=== PATIENT | male | born 1960 ===

== ENCOUNTER 2024-06-12 07:12 | Day surgery (SDC) | payer OTHER ==
[2024-06-12] MEDS ORDERED: DIBUCAINE 30 GM TUBE ONE (10:33)
[2024-06-12] MEDS ORDERED: LIDOCAINE HCL 1%/EPINEPHRINE 20ML VIAL IJ ONE ×2 (10:33→11:30)
[2024-06-12] MEDS ORDERED: HEMOSTATIC MATRIX 1 KIT KIT TOP ONE ×2 (10:33→11:30)
[2024-06-12] MEDS ORDERED: POVIDONE-IODINE 118 ML BOTT TOP ONE ×2 (10:33→11:30)
[2024-06-12] MEDS ORDERED: METRONIDAZOLE/SODIUM CHLORIDE 500 MG/100 ML PIGGYBACK IV ONE ×2 (10:35→11:30)
[2024-06-12] MEDS ORDERED: CEFTRIAXONE SODIUM 2,000 MG VIAL ONE (10:35)
[2024-06-12] MEDS ORDERED: DIBUCAINE 30 GM TUBE RECTAL ONE (11:30)
[2024-06-12] MEDS ORDERED: BUPIVACAINE HCL 30 ML VIAL IJ ONE (11:30)
[2024-06-12] MEDS ORDERED: CEFTRIAXONE SODIUM 2,000 MG VIAL IV ONE (11:30)
== END 2024-06-12 16:20 | disposition home or self-care (01) ==
LOC: CIR.AMB 07:12
PROVIDERS: ATTEND Colon & Rectal Surgery
DX: K60.1 Chronic anal fissure (principal); K62.4 Stenosis of anus and rectum; K92.1 Melena